=== PATIENT | female | born 1975 | race Caucasian/White ===

== ENCOUNTER 2017-06-19 10:47 | Emergency (ER) | payer BC ==
[2017-06-19] MEDS ORDERED: HYDROmorphone 0.5 MG/0.5 ML SYRINGE IM ONE (11:16)
[2017-06-19] MEDS ORDERED: Cyclobenzaprine 10 MG Tab PO ONE (11:17)
[2017-06-19] MEDS ORDERED: predniSONE 20 MG Tab PO ONE (11:17)
[2017-06-19] MEDS ORDERED: Ketorolac 60 MG/2 ML SDV IM ONE (11:17)
--- NOTE | 2017-06-19 11:23 | EDM.PDOC ---
ED HPI GENERAL MEDICAL PROBLEM - General Chief Complaint: Back Pain or Injury Stated Complaint: BACK PAIN Time Seen by Provider: 06/19/17 11:09 Source of Information: Reports: Patient History Limitations: Reports: No Limitations - History of Present Illness INITIAL COMMENTS - FREE TEXT/NARRATIVE: The patient presents with right sided low back pain that radiates down her right leg. This started about 5 to 6 months ago and for the past few days it has gotten worse. She had surgery for a bulging disc on her left side years ago and that is better. Dr Rhodes did the surgery in [place]. She has no bowel or bladder problems. She has no weakness but she does have some numbness to the right leg at times. She is scheduled to see Diamond Andrew at 11:30 today. Onset: Gradual Duration: Week(s): (5 months ago) Location: Reports: Back, Lower Extremity, Right Quality: Reports: Sharp Severity: Severe Improves with: Reports: Immobilization Worsens with: Reports: Movement Associated Symptoms: Reports: No Other Symptoms Treatments [employer]: Reports: NSAIDS, Other (see below) Other Treatments [employer]: gabapentin Lower Back Pain Score (Numeric/FACES): 10 - Related Data Allergies Allergy/AdvReac Type Severity Reaction Status Date / Time No Known Allergies Allergy Verified 06/19/17 11:01 Home Meds: Home Meds Ibuprofen [Motrin] 800 mg PO TID 05/26/13 [History] buPROPion HCl [Wellbutrin Xl] 300 mg PO DAILY 05/26/13 [History] lamoTRIgine [Lamotrigine] 25 mg PO DAILY 05/26/13 [History] metFORMIN [Glucophage] 1,000 mg PO DAILY 05/26/13 [History] Cyclobenzaprine [Flexeril] 10 mg PO TID PRN #20 tab 06/19/17 [Rx] Gabapentin [Neurontin] 300 mg PO ASDIRECTED 06/19/17 [History] Hydrocodone/Acetaminophen [Hydrocodon-Acetaminophen 5-325] 1 - 2 each PO Q6HR PRN #20 tablet 06/19/17 [Rx] Lisinopril 5 mg PO DAILY 06/19/17 [History] predniSONE [Prednisone] 40 mg PO DAILY #10 tablet 06/19/17 [Rx] Past Medical History Musculoskeletal History: Reports: Back Pain, Chronic - Past Surgical History Musculoskeletal Surgical History: Reports: Other (See Below) Other Musculoskeletal Surgeries/Procedures:: neck surgery; lumbar surgery for bulging discs. Social & Family History - Family History Family Medical History: Noncontributory - Tobacco Use Smoking Status *Q: Current Every Day Smoker Years of Tobacco use: 20 Packs/Tins Daily: 0.5 - Caffeine Use Caffeine Use: Reports: Coffee Other Caffeine Use: rarely - Recreational Drug Use Recreational Drug Use: No ED ROS GENERAL - Review of Systems Review Of Systems: See Below Constitutional: Reports: No Symptoms HEENT: Reports: No Symptoms Respiratory: Reports: No Symptoms Cardiovascular: Reports: No Symptoms Endocrine: Reports: No Symptoms GI/Abdominal: Reports: No Symptoms : Reports: No Symptoms Musculoskeletal: Reports: Back Pain Neurological: Reports: No Symptoms ED EXAM,LOWER BACK PAIN/INJURY - Physical Exam Exam: See Below Exam Limited By: No Limitations General Appearance: Alert, No Apparent Distress Ears: Normal External Exam Nose: Normal Inspection Head: Atraumatic, Normocephalic Neck: Normal Inspection Respiratory/Chest: No Respiratory Distress, Lungs Clear, Normal Breath Sounds Cardiovascular: Regular Rate, Rhythm, No Edema, No Murmur GI/Abdominal: Soft, Non-Tender, No Organomegaly, No Mass Back Exam: Paraspinal Tenderness (right lower back) Extremities: Normal Inspection Neurological: Alert, No Motor/Sensory Deficits, Oriented x 3 Course - Vital Signs Last Recorded V/S: Last Vital Signs Temp 98.5 F 06/19/17 10:55 Pulse 85 06/19/17 10:55 Resp 18 06/19/17 10:55 BP 147/98 H 06/19/17 10:55 Pulse Ox 97 06/19/17 10:55 - Orders/Labs/Meds Orders: Active Orders 24 hr Category Date Time Status Cyclobenzaprine [Flexeril] Med 06/19/17 11:17 Once 10 mg PO ONETIME ONE HYDROmorphone [Dilaudid] Med 06/19/17 11:16 Once 1 mg IM ONETIME ONE Ketorolac [Toradol] Med 06/19/17 11:17 Once 60 mg IM ONETIME ONE predniSONE Med 06/20/17 11:17 Once 40 mg PO ONETIME ONE - Re-Assessments/Exams Free Text/Narrative Re-Assessment/Exam: 06/19/17 11:24 I ordered a shot of dilaudid 1mg IM, toradol 60mg IM, flexeril 10mg by mouth, and prednisone 40mg by mouth. 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 Departure - Departure Time of Disposition: 11:25 Disposition: Home, Self-Care 01 Condition: Good Clinical Impression: Low back pain Qualifiers: Chronicity: chronic Back pain laterality: right Sciatica presence: with sciatica Sciatica laterality: sciatica of right side Qualified Code(s): M54.41 - Lumbago with sciatica, right side; G89.29 - Other chronic pain - Discharge Information Prescriptions: Hydrocodone/Acetaminophen [Hydrocodon-Acetaminophen 5-325] 1 - 2 each PO Q6HR PRN #20 tablet PRN Reason: Pain Cyclobenzaprine [Flexeril] 10 mg PO TID PRN #20 tab PRN Reason: Pain predniSONE [Prednisone] 40 mg PO DAILY #10 tablet Referrals: Diamond Andrew PA [Primary Care Provider] - Additional Instructions: Take the medication as prescribed. Follow up with Diamond Andrew. I feel you may need an MRI and she would be the best person to get that done. Please return if you are worse. - My Orders Last 24 Hours: My Active Orders 06/19/17 11:16 HYDROmorphone [Dilaudid] 1 mg IM ONETIME ONE 06/19/17 11:17 Cyclobenzaprine [Flexeril] 10 mg PO ONETIME ONE Ketorolac [Toradol] 60 mg IM ONETIME ONE 06/20/17 11:17 predniSONE 40 mg PO ONETIME ONE - Assessment/Plan Last 24 Hours: My Active Orders 06/19/17 11:16 HYDROmorphone [Dilaudid] 1 mg IM ONETIME ONE 06/19/17 11:17 Cyclobenzaprine [Flexeril] 10 mg PO ONETIME ONE Ketorolac [Toradol] 60 mg IM ONETIME ONE 06/20/17 11:17 predniSONE 40 mg PO ONETIME ONE
[2017-06-20] MEDS ORDERED: predniSONE 20 MG Tab PO ONE (11:17)
== END 2017-06-19 11:48 | disposition home or self-care (01) ==
LOC: JD.ED 10:47
DX: M54.41 Lumbago with sciatica, right side (principal); G89.29 Other chronic pain; F17.210 Nicotine dependence, cigarettes, uncomplicated; Z79.84 Long term (current) use of oral hypoglycemic drugs; Z79.899 Other long term (current) drug therapy
CPT/HCPCS: 96372; 99283; A9270; J1170; J1885

== ENCOUNTER 2018-05-10 17:43 | Emergency (ER) | payer BC | END 2018-05-10 17:44 | disposition left against medical advice (07) | LOC: JD.ED 17:43 | DX: Z53.21 Procedure and treatment not carried out due to patient leaving prior to being seen by health care provider (principal) ==